=== PATIENT | male | born 1970 | race Caucasian/White ===

== ENCOUNTER → 2018-02-20 | Outpatient (CLI) | payer BC ==
--- NOTE | 2018-02-20 16:41 | US ---
EXAMINATION TYPE: US scrotum with doppler. Grayscale and color Doppler Duplex imaging performed of t he scrotum. DATE OF EXAM: 02/20/2018 COMPARISON: NONE CLINICAL HISTORY: N50.819 Testicular Pain. EXAM MEASUREMENTS: TESTICLES: Right Testicle: 4.7 x 2.8 x 2.8 cm Left Testicle: 4.0 x 2.2 x 2.8 cm EPIDIDYMIS HEAD: Right Epididymis: 1.3 cm Left Epididymis: 1.7 cm Doppler performed to assess for testicular vascularity; good bilateral color flow and waveforms are s een. There is no evidence of testicular torsion. Presence of hydroceles: no Presence of varicoceles: no IMPRESSION: No evidence of testicular torsion or mass. No free fluid.
== END | disposition home or self-care (01) ==
LOC: RADUSWWP 16:05
PROVIDERS: ATTEND Family Medicine
DX: N50.819 Testicular pain, unspecified (principal)
CPT/HCPCS: 76870; 93975

== ENCOUNTER → 2018-10-29 | Outpatient (CLI) | payer BC ==
--- NOTE | 2018-10-29 07:26 | MR ---
EXAMINATION TYPE: MR brain wo con DATE OF EXAM: 10/29/2018 COMPARISON: NONE HISTORY: Vertigo T1-weighted sagittal, T2, FLAIR, and diffusion axial, and T2 coronal coronal views of the brain are s ubmitted. There is no evidence of acute ischemia. The ventricles, basal cisterns, and sulci overlying the conv exities are consistent with the patient's age. There is no mass effect. Craniocervical junction maintained. Sella turcica has a normal appearance. Trace amount of fluid surr ounding the optic nerves. No cerebellopontine angle mass. Changes of chronic sinusitis noted. Changes of mild mastoiditis. IMPRESSION: 1. No acute intracranial process. 2. Findings compatible with chronic sinusitis and mild left mastoiditis. 3. There is a trace amount of fluid surrounding the optic nerves which is nonspecific but can occasio chel be seen with benign increased intracranial hypertension. Correlate clinically.
== END | disposition home or self-care (01) ==
LOC: RADMRIMAIN 06:15
PROVIDERS: ATTEND Family Medicine
DX: R42 Dizziness and giddiness (principal)
CPT/HCPCS: 70551

== ENCOUNTER → 2019-03-23 | Outpatient (CLI) | payer BC ==
--- NOTE | 2019-03-24 08:12 | US ---
EXAMINATION TYPE: US thyroid st tissue head/neck DATE OF EXAM: 03/23/2019 COMPARISON: US 2016, 2014, and 2013. CLINICAL HISTORY: E04.1 Thyroid nodule. Nontoxic single thyroid nodule. GLAND SIZE: Right Lobe: 6.2 x 1.8 x 2.2 cm Overall Parenchyma: homogenous Left Lobe: 5.2 x 1.9 x 1.7 cm Overall Parenchyma: homogeneous Isthmus Thickness: 0.3 cm NODULES RIGHT: # of nodules measured on right: 1 1. 1.1 X 1.0 x 1.2 cm mixed nodule at the upper pole with irregular margins. This nodule is taller than wide and shows intranodular vascularity. Prior size: 1.1 x 0.8 x 0.8 cm LEFT: # of nodules measured on left: 0 ISTHMUS: # of nodules measured in the isthmus: 0 IMPRESSION: Continued slow growth of the complex right thyroid nodule in comparison to the exam of , 2014, and 2013 and an overall enlarged thyroid gland. Given the nodules small size continued surv eillance could be performed.
== END | disposition home or self-care (01) ==
LOC: RADUSWWP 16:00
PROVIDERS: ATTEND Family Medicine
DX: E04.1 Nontoxic single thyroid nodule (principal)
CPT/HCPCS: 76536

== ENCOUNTER → 2019-10-09 | Outpatient (CLI) | payer BC ==
--- NOTE | 2019-10-09 11:53 | ECHOS ---
STRESS ECHOCARDIOGRAM INDICATIONS: Dyspnea MEDICATIONS: Jardience, Livalo, omeprazole, lisinopril. BASELINE HEART RATE: 81 BASELINE BLOOD PRESSURE: 111/70 MAXIMUM HEART RATE: 164 MAXIMUM BLOOD PRESSURE: 207/83 85% MPHR: 145 100% MPHR: 171 METS: 11.7 MAXIMUM STAGE REACHED: 4 TOTAL EXERCISE TIME: 10:00 CLINICAL INFORMATION: History of shortness of breath, referred for exercise stress echo. Baseline heart rate 81 beats per minute. Baseline blood pressure 111/70 mmHg. Baseline 12-lead ECG shows sinus rhythm with 0.[address] elevation inferolaterally. Patient exercised on a Ghassan protocol for 10 minutes achieving a peak heart rate of 164 beats per minute. Hypertensive response to exercise noted. Peak blood pressure was 207/83 mmHg. PVCs were noted during the stress test. There was no ECG evidence for ischemia. No sustained or nonsustained arrhythmias noted. Baseline 2D echo images showed normal LV size and systolic function without any segmental wall motion abnormalities. At peak exercise, there was excellent augmentation of overall LV contractility without development of any wall motion abnormalities. At recovery, regional global LV systolic function remained normal. IMPRESSION: 1. No ECG or echocardiographic evidence for ischemia. 2. Good exercise capacity. 3. Occasional premature ventricular contractions noted during exercise. MMODL / IJN: [id number] /
== END | disposition home or self-care (01) ==
LOC: RADNMMAIN 09:31
PROVIDERS: ATTEND Family Medicine
DX: R06.00 Dyspnea, unspecified (principal)
CPT/HCPCS: 93351

== ENCOUNTER 2020-12-25 03:14 | Emergency (ER) | payer BC ==
[2020-12-25 03:19] VITALS: TEMP 98.4
[2020-12-25] MEDS ORDERED: SODIUM CHLORIDE 0.9% 1,000 ML IV STA ×2 (03:25→04:36)
[2020-12-25] MEDS ORDERED: MORPHINE SULFATE 4 MG/ML SYRINGE IV STA (03:25)
--- NOTE | 2020-12-25 03:25 | ED ---
Back Pain HPI - General Chief Complaint: Back Pain/Injury Stated Complaint: Lower back pain Time Seen by Provider: 12/25/20 03:18 Source: patient, RN notes reviewed, old records reviewed Limitations: no limitations - History of Present Illness Initial Comments: This is a 50-year-old male DF for evaluation patient with sudden onset of left- sided severe back and abdominal pain radiating to groin with difficulty and pain. Patient has no history of kidney stones but does have fentanyl with history of kidney stones. Nursing travel history no fevers. No other complaints. Symptoms are sudden onset tonight with no prior history of same MD Complaint: back pain, other (Left flank pain) -: hour(s) Similar Symptoms Previously: No Place: home Radiation: groin Severity: severe Severity scale (1-10): 10 Quality: sharp Consistency: constant Improves With: none Worsens With: none, other (Awoke with symptoms) Associated Symptoms: denies other symptoms - Related Data Allergies Allergy/AdvReac Type Severity Reaction Status Date / Time No Known Allergies Allergy Verified 12/25/20 03:18 Review of Systems ROS Statement: Those systems with pertinent positive or pertinent negative responses have been documented in the HPI. ROS Other: All systems not noted in ROS Statement are negative. Past Medical History Past Medical History: Diabetes Mellitus History of Any Multi-Drug Resistant Organisms: None Reported Past Surgical History: No Surgical Hx Reported Past Psychological History: No Psychological Hx Reported Smoking Status: Never smoker Past Alcohol Use History: Occasional Past Drug Use History: None Reported General Exam Limitations: no limitations General appearance: alert, in no apparent distress Head exam: Present: atraumatic, normocephalic, normal inspection Eye exam: Present: normal appearance, PERRL, EOMI. Absent: scleral icterus, conjunctival injection, periorbital swelling ENT exam: Present: normal exam, mucous membranes moist Neck exam: Present: normal inspection. Absent: tenderness, meningismus, lymphadenopathy Respiratory exam: Present: normal lung sounds bilaterally. Absent: respiratory distress, wheezes, rales, rhonchi, stridor Cardiovascular Exam: Present: normal rhythm, tachycardia, normal heart sounds. Absent: systolic murmur, diastolic murmur, rubs, gallop, clicks GI/Abdominal exam: Present: soft, normal bowel sounds. Absent: distended, tenderness, guarding, rebound, rigid Extremities exam: Present: normal inspection, full ROM, normal capillary refill. Absent: tenderness, pedal edema, joint swelling, calf tenderness Back exam: Present: normal inspection Neurological exam: Present: alert, oriented X3, CN II-XII intact Psychiatric exam: Present: normal affect, normal mood Skin exam: Present: warm, dry, intact, normal color. Absent: rash Course Vital Signs 12/25/20 12/25/20 03:15 04:35 Temperature 98.4 F Pulse Rate 109 H 97 Respiratory 22 Rate Blood Pressure 124/78 178/98 O2 Sat by Pulse 99 98 Oximetry - Reevaluation(s) Reevaluation #1: 12/25/20 04:37 Medical record is reviewed Reevaluation #2: 12/25/20 04:38 patient patient has pain control but still with severe pain 12/25/20 05:02 Patient continues to feel better here in the ER Reevaluation #3: 12/25/20 05:02 Spoke with patient regarding findings, questions answered Medical Decision Making - Medical Decision Making 50 female DF for evaluation patient Dese for evaluation regards to severe pain does have positive kidney stone. Given symptomatic treatment and can be discharged home - Lab Data Result diagrams: 12/25/20 03:41 12/25/20 03:41 Lab Results 12/25/20 12/25/20 12/25/20 Range/Units 03:41 03:41 03:41 WBC 18.2 H (3.8-10.6) k/uL RBC 5.16 (4.30-5.90) m/uL Hgb 16.4 (13.0-17.5) gm/dL Hct 48.4 (39.0-53.0) % MCV 93.9 (80.0-100.0) fL MCH 31.8 (25.0-35.0) pg MCHC 33.9 (31.0-37.0) g/dL RDW 12.9 (11.5-15.5) % Plt Count 222 (150-450) k/uL MPV 7.7 Neutrophils % 87 % Lymphocytes % 8 % Monocytes % 3 % Eosinophils % 0 % Basophils % 0 % Neutrophils # 15.9 H (1.3-7.7) k/uL Lymphocytes # 1.5 (1.0-4.8) k/uL Monocytes # 0.6 (0-1.0) k/uL Eosinophils # 0.0 (0-0.7) k/uL Basophils # 0.0 (0-0.2) k/uL Sodium 141 (137-145) mmol/L Potassium 3.8 (3.5-5.1) mmol/L Chloride 102 (98-107) mmol/L Carbon Dioxide 20 L (22-30) mmol/L Anion Gap 19 mmol/L BUN 20 (9-20) mg/dL Creatinine 1.35 H (0.66-1.25) mg/dL Est GFR (CKD-EPI)AfAm 70 (>60 ml/min/1.73 sqM) Est GFR (CKD-EPI)NonAf 61 (>60 ml/min/1.73 sqM) Glucose 201 H (74-99) mg/dL Calcium 10.0 (8.4-10.2) mg/dL Total Bilirubin 0.5 (0.2-1.3) mg/dL AST 27 (17-59) U/L ALT 30 (4-49) U/L Alkaline Phosphatase 68 (38-126) U/L Total Protein 8.0 (6.3-8.2) g/dL Albumin 5.2 H (3.5-5.0) g/dL Amylase 112 H (30-110) U/L Lipase 342 H (23-300) U/L Urine Color Light Yellow Urine Appearance Clear (Clear) Urine pH 5.5 (5.0-8.0) Ur Specific Elfrida 1.025 (1.001-1.035) Urine Protein Negative (Negative) Urine Glucose (UA) 4+ H (Negative) Urine Ketones 1+ H (Negative) Urine Blood Negative (Negative) Urine Nitrite Negative (Negative) Urine Bilirubin Negative (Negative) Urine Urobilinogen <2.0 (<2.0) mg/dL Ur Leukocyte Esterase Negative (Negative) - Radiology Data Radiology results: report reviewed (CT abdomen and pelvis positive for kidney stone), image reviewed Disposition Clinical Impression: Left ureteral calculus Disposition: HOME SELF-CARE Condition: Good Instructions (If sedation given, give patient instructions): Kidney Stones (ED) Is patient prescribed a controlled substance at d/c from ED?: No Referrals: Gino Alvarez MD [Primary Care Provider] - 1-2 days
[2020-12-25 03:48] LABS: Appearance,Urine Clear (Clear); Bilirubin,Urine Negative (Negative); Blood,Urine Negative (Negative); Color,Urine Light Yellow; Glucose,Urine (UA) 4+ (Negative); Ketones,Urine 1+ (Negative); Leukocyte Esterase,Urine Negative (Negative); Nitrite,Urine Negative (Negative); PH, Urine 5.5 (5.0-8.0); Protein,Urine Negative (Negative); Specific Gravity,Urine 1.025 (1.001-1.035); Urobilinogen,Urine <2.0 mg/dL (<2.0)
[2020-12-25 03:50] LABS: Basophils % (A) 0 %; Eosinophils % (A) 0 %; HCT 48.4 % (39.0-53.0); HGB 16.4 gm/dL (13.0-17.5); Lymphocytes # (A) 1.5 k/uL (1.0-4.8); Lymphocytes % (A) 8 %; MCH 31.8 pg (25.0-35.0); MCHC 33.9 g/dL (31.0-37.0); MCV 93.9 fL (80.0-100.0); Mean Platelet Volume 7.7; Monocytes # (A) 0.6 k/uL (0-1.0); Monocytes % (A) 3 %; Neutrophils # (A) 15.9 k/uL (1.3-7.7); Neutrophils % (A) 87 %; Platelet Count 222 k/uL (150-450); RBC 5.16 m/uL (4.30-5.90); RDW 12.9 % (11.5-15.5); WBC 18.2 k/uL (3.8-10.6)
[2020-12-25 03:57] LABS: Albumin 5.2 g/dL (3.5-5.0); Potassium 3.8 mmol/L (3.5-5.1); Total Bilirubin 0.5 mg/dL (0.2-1.3)
[2020-12-25] MEDS ORDERED: HYDROmorphone 1 MG/ML 1 ML SYRINGE IVP STA (04:36)
--- NOTE | 2020-12-25 04:37 | CT ---
EXAM: CT Abdomen and Pelvis Without Intravenous Contrast CLINICAL HISTORY: Abdominal pain. TECHNIQUE: Axial computed tomography images of the abdomen and pelvis without intravenous contrast. CTDI is 10.77 mGy and DLP is 626 mGy-cm. This CT exam was performed using one or more of the following dose reduction techniques: automated exposure control, adjustment of the mA and/or kV according to patient size, and/or use of iterative reconstruction technique. COMPARISON: No relevant prior studies available. FINDINGS: Lung bases: Unremarkable. No mass. No consolidation. ABDOMEN: Liver: Unremarkable. Gallbladder and bile ducts: Unremarkable. No calcified stones. No ductal dilation. Pancreas: Unremarkable. No ductal dilation. Spleen: Unremarkable. No splenomegaly. Adrenals: Unremarkable. No mass. Kidneys and ureters: Moderate to severe left hydronephrosis with extensive perinephric stranding. 3 mm obstructing calculus at the left ureterovesical junction. Stomach and bowel: Unremarkable. No obstruction. No mucosal thickening. PELVIS: Appendix: No findings to suggest acute appendicitis. Bladder: Unremarkable. No stones. Reproductive: Unremarkable as visualized. ABDOMEN and PELVIS: Intraperitoneal space: Unremarkable. No free air. No significant fluid collection. Bones/joints: No acute fracture. No dislocation. Soft tissues: Unremarkable. Vasculature: Unremarkable. No abdominal aortic aneurysm. Lymph nodes: Unremarkable. No enlarged lymph nodes. IMPRESSION: Moderate to severe left hydronephrosis with extensive perinephric stranding. 3 mm obstructing calculus at the left ureterovesical junction.
[2020-12-25] MEDS ORDERED: IBUPROFEN 600 MG STARTER PACK 4 TAB BTL PO STA (04:53)
[2020-12-25] MEDS ORDERED: ACET/COD 300 MG/30 MG STARTER PACK 6 TAB BTL PO STA (04:53)
[2020-12-25] MEDS ORDERED: TAMSULOSIN 0.4 MG CAP.ER.24H PO STA (04:53)
[2020-12-25] MEDS ORDERED: KETOROLAC 15 MG/ML 1 ML VIAL IVP STA (04:53)
[2020-12-25 05:41] VITALS: BP 156/98; PULSE 102; RESP 16
== END 2020-12-25 05:40 | disposition home or self-care (01) ==
LOC: EC 03:14
DX: N20.2 Calculus of kidney with calculus of ureter (principal)
CPT/HCPCS: 36415; 80053; 82150; 83690; 85025; 81003; 74176; 99284; 96374; 96375 ×2; 96361 ×2; J2270; J1170; J1885

== ENCOUNTER → 2021-07-28 | Outpatient (CLI) | payer BC ==
--- NOTE | 2021-07-28 15:41 | MR ---
EXAMINATION TYPE: MR lumbar spine wo con DATE OF EXAM: 07/28/2021 COMPARISON: CT abdomen and pelvis December 25, 2020 HISTORY: LBP, radiating down right hip and leg x 1 month, no hx of trauma. TECHNIQUE: Multiplanar, multisequence imaging of the lumbar spine is performed without IV contrast. FINDINGS: Sagittal images of the lumbar spine show vertebral body heights and alignment to appear sat isfactory. Multilevel disc desiccation with disc space heights fairly well maintained. The conus med ullaris is normal in position and signal ending mid L1 level. Small hemangioma involving L3 vertebra sagittal image 8. Axial images show T12-L1, L1-L2, and L2-L3 levels all to appear within normal limits. Axial images at L3-L4 level show mild broad disc bulge with tiny left paracentral disc protrusion com ponent mildly effacing the anterior thecal sac and causing mild left-sided anterior inferior neural f oraminal narrowing. Patent right-sided neural foramina. Axial images at L4-L5 level show [id number] facet arthropathy bilaterally. There is focal right paracentral disc protrusion minimally effacing the anterior thecal sac, there is mild left greater t huizar right bilateral neural foraminal narrowing. Axial images at L5-S1 level show mild facet arthropathy otherwise unremarkable. Increased epidural fa t at this level noted. There is a round 1.2 cm T2 hyperintense structure suggesting simple thin-walled cyst left kidney axia l image 19 less well seen on CT. IMPRESSION: Mild to moderate multilevel degenerative changes mid to lower lumbar spine as detailed ab ove.
== END | disposition home or self-care (01) ==
LOC: RADMRIMAIN 14:23
PROVIDERS: ATTEND Family Medicine
DX: M51.16 Intervertebral disc disorders with radiculopathy, lumbar region (principal); M47.27 Other spondylosis with radiculopathy, lumbosacral region; M99.73 Connective tissue and disc stenosis of intervertebral foramina of lumbar region
CPT/HCPCS: 72148

== ENCOUNTER → 2021-11-10 | Outpatient (CLI) | payer BC ==
--- NOTE | 2021-11-10 10:40 | XR ---
EXAMINATION TYPE: XR chest 2V DATE OF EXAM: 11/10/2021 COMPARISON: Prior chest x-ray June 11, 2013 HISTORY: Presurgical study. TECHNIQUE: Frontal and lateral views of the chest are obtained. FINDINGS: There is no suspicious new focal air space opacity, pleural effusion, or pneumothorax seen . The cardiac silhouette size is stable and within normal limits. The osseous structures are intac t. IMPRESSION: No acute process. No significant change from prior.
[2021-11-10 11:18] LABS: Appearance,Urine Clear (Clear); Bilirubin,Urine Negative (Negative); Blood,Urine Negative (Negative); Color,Urine Light Yellow; Glucose,Urine (UA) 4+ (Negative); HCT 49.8 % (39.0-53.0); HGB 16.8 gm/dL (13.0-17.5); Ketones,Urine Negative (Negative); Leukocyte Esterase,Urine Negative (Negative); MCHC 33.8 g/dL (31.0-37.0); MCV 97.7 fL (80.0-100.0); Mean Platelet Volume 7.6; Nitrite,Urine Negative (Negative); Platelet Count 189 k/uL (150-450); Protein,Urine Negative (Negative); RDW 12.8 % (11.5-15.5); Specific Gravity,Urine 1.033 (1.001-1.035); Urobilinogen,Urine <2.0 mg/dL (<2.0); WBC 7.3 k/uL (3.8-10.6)
[2021-11-10 11:34] LABS: African American GFR (CKD) >90 (>60 ml/min/1.73 sqM); Anion Gap 11 mmol/L; Blood Urea Nitrogen 19 mg/dL (9-20); Calcium 9.9 mg/dL (8.4-10.2); Carbon Dioxide 23 mmol/L (22-30); Chloride 106 mmol/L (98-107); Glucose 202 mg/dL (74-99); Non-African American GFR(CKD) >90 (>60 ml/min/1.73 sqM); Partial Thromboplastin Time 24.9 sec (22.0-30.0); Potassium 4.4 mmol/L (3.5-5.1); Prothrombin Time 10.4 sec (9.0-12.0); Sodium 140 mmol/L (137-145)
== END | disposition home or self-care (01) ==
LOC: LABPAT 10:04
PROVIDERS: ATTEND Orthopaedic Surgery Orthopaedic Surgery of the Spine
DX: M51.26 Other intervertebral disc displacement, lumbar region (principal); E11.9 Type 2 diabetes mellitus without complications; M51.36 Other intervertebral disc degeneration, lumbar region; M62.830 Muscle spasm of back; M51.16 Intervertebral disc disorders with radiculopathy, lumbar region
CPT/HCPCS: 36415; 71046; 80048; 81003; 85027; 85610; 85730; 93005

== ENCOUNTER 2022-10-12 09:15 | Day surgery (SDC) | payer BC ==
[2022-10-10 12:00] VITALS: BMI 27.1
[~2022-10-12 09:15] MED LIST: LACTATED RINGERS 1,000 ML IV SCH
[2022-10-12 09:53] VITALS: RESP 16; TEMP 97.6
[2022-10-12 10:03] LABS: Glucose,Whole Blood 106 mg/dL (70-110)
[2022-10-12] MEDS ORDERED: LIDOCAINE 1% (10MG/ML) FOR IV START INTRADERMA ONE (10:06)
[2022-10-12] MEDS ORDERED: PROPOFOL 10 MG/ML 20 ML VIAL IV ONE (10:49)
--- NOTE | 2022-10-12 11:13 | P.PCN ---
Date of Procedure: 10/12/22 Procedure(s) Performed: BRIEF HISTORY: Patient is a 52-year-old pleasant white male scheduled for an elective colonoscopy as a part of in for colon cancer. PROCEDURE PERFORMED: Colonoscopy. PREOPERATIVE DIAGNOSIS: Screening for colon cancer. IV sedation per Anesthesia. PROCEDURE: After informed consent was obtained, the patient, was brought into the endoscopy unit. IV sedation was administered by Anesthesia under continuous monitoring. Digital rectal examination was normal. Initially the Olympus CF-160 flexible video colonoscope was then inserted in the rectum, gradually advanced into the cecum without any difficulty. Careful examination was performed as the scope was gradually being withdrawn. Ileocecal valve and the appendiceal orifice were visualized and appeared normal. Prep was fair. There was some sticky still noted in the base of the cecum there was thoroughly irrigated.. Mucosa of the cecum, ascending colon, transverse colon, descending colon, sigmoid colon, and rectum appeared normal. Retroflexion was performed in the rectum and no lesions were seen. The patient tolerated the procedure well. IMPRESSION: Normal-appearing colon from rectum to cecum with no evidence of colorectal neoplasia . RECOMMENDATIONS: Findings of this examination were discussed with the patient as well as his family. He was advised to have a repeat screening colonoscopy in 10 years..
[2022-10-12 11:33] VITALS: BP 134/72; PULSE 82
== END 2022-10-12 11:45 | disposition home or self-care (01) ==
LOC: ORWHC2ENDO 09:15
PROVIDERS: ATTEND Internal Medicine Gastroenterology
DX: Z12.11 Encounter for screening for malignant neoplasm of colon (principal); I10 Essential (primary) hypertension; E78.5 Hyperlipidemia, unspecified; E11.9 Type 2 diabetes mellitus without complications; Z79.899 Other long term (current) drug therapy
CPT/HCPCS: 45378; J2704

== ENCOUNTER → 2023-12-12 | Outpatient (CLI) | payer BC ==
--- NOTE | 2023-12-12 12:38 | FL ---
EXAMINATION TYPE: FL barium swallow DATE OF EXAM: 12/12/2023 CLINICAL INDICATION: 53-year-old male R13.10, unspecified dysphasia, reflux, previous diagnosis of hi atal hernia in 2012. COMPARISON: None Total fluoroscopy time: 1 minute 22 seconds Total images: 30 DOSE AREA PRODUCT (DAP) UGY*M,MGY*CM: 258.92 FINDINGS: The swallowing mechanism is normal and hypopharyngeal anatomy is preserved. The cervical and thoracic portions have a normal course and caliber and normal motility. The mucosa is normal and no persistent filling defect is encountered. There is a sliding hiatal herni a. This various in size depending on patient's position and breathing between tiny and moderate in si ze. Severe gastroesophageal reflux is encountered with positional and Valsalva maneuvers. IMPRESSION: A sliding hiatal hernia changing between tiny to moderate in size. Severe gastroesophagea l reflux is encountered.
== END | disposition home or self-care (01) ==
LOC: RADUSWWP 07:57
PROVIDERS: ATTEND Surgery Plastic and Reconstructive Surgery
DX: K21.9 Gastro-esophageal reflux disease without esophagitis (principal); K44.9 Diaphragmatic hernia without obstruction or gangrene; R13.10 Dysphagia, unspecified
CPT/HCPCS: 74220

== ENCOUNTER 2024-01-02 07:30 | Day surgery (SDC) | payer BC ==
[~2024-01-02 07:30] MED LIST changes: -LACTATED RINGERS 1,000 ML IV SCH; +LIDOCAINE 1% (10MG/ML) FOR IV START INTRADERMA PRN
--- NOTE | 2024-01-02 07:34 | P.GSHP ---
History of Present Illness H&P Date: 01/02/24 CHIEF COMPLAINT: GERD HISTORY OF PRESENT ILLNESS: The patient is a 53-year-old male who presents reports gastroesophageal reflux disease. Upper endoscopy was offered for further evaluation and management. PAST MEDICAL HISTORY: Please see list. PAST SURGICAL HISTORY: Please see list. MEDICATIONS: Please see list. ALLERGIES: Please see list. SOCIAL HISTORY: No illicit drug use FAMILY HISTORY: No reports of Crohn disease or ulcerative colitis. REVIEW OF ORGAN SYSTEMS: CONSTITUTIONAL: No reports of fevers or chills. GI: Denies any blood in stools or constipation. PHYSICAL EXAM: VITAL SIGNS: Stable GENERAL: Well-developed and pleasant in no acute distress. HEENT: No scleral icterus. Extraocular movements grossly intact. Moist buccal mucosa. NECK: Supple without lymphadenopathy. CHEST: Unlabored respirations. Equal bilateral excursions. CARDIOVASCULAR: Regular rate and rhythm. Distal 2+ pulses. ABDOMEN: Soft, nondistended. MUSCULOSKELETAL: No clubbing, cyanosis, or edema. ASSESSMENT: 1. Gastroesophageal reflux disease PLAN: 1. Recommend proceeding with an upper endoscopy Past Medical History Past Medical History: Diabetes Mellitus, GERD/Reflux, Hyperlipidemia Additional Past Medical History / Comment(s): Irregular heart rate @ times. Hx. of IBS. Takes Lisinopril to help with the Jardiance. Hx. of Pilonidal cyst. polyp on thyroid History of Any Multi-Drug Resistant Organisms: MRSA Date of last positivie culture/infection: 2011 MDRO Source:: lower back Past Surgical History: Back Surgery, Orthopedic Surgery Additional Past Surgical History / Comment(s): Back surgery in 2021, hx. of drained Pilonidal cyst. Past Anesthesia/Blood Transfusion Reactions: No Reported Reaction Smoking Status: Never smoker - Past Family History Mother Family Medical History: No Reported History Medications and Allergies Home Medications Medication Instructions Recorded Confirmed Type Aspirin [Adult Low Dose Aspirin EC] 81 mg PO DAILY 10/10/22 12/31/23 History Atorvastatin [Lipitor] 20 mg PO DAILY 10/10/22 12/31/23 History Cholecalciferol [Vitamin D3 (10 10 mcg PO DAILY 10/10/22 12/31/23 History Mcg = 400 Iu)] Omeprazole [PriLOSEC] 20 mg PO AC-BRKFST 10/10/22 12/31/23 History lisinopriL 2.5 mg PO DAILY 10/10/22 12/31/23 History Empagliflozin [Jardiance] 25 mg PO DAILY 12/31/23 12/31/23 History Semaglutide [Ozempic] 2 mg SQ TH 12/31/23 12/31/23 History Allergies Allergy/AdvReac Type Severity Reaction Status Date / Time No Known Allergies Allergy Verified 12/31/23 10:04
[2024-01-02 07:49] VITALS: RESP 16; TEMP 97
[2024-01-02] MEDS: LACTATED RINGERS 1,000 ML IV SCH (07:57)
[2024-01-02 08:01] LABS: Glucose,Whole Blood 132 mg/dL (70-110)
[2024-01-02] MEDS ORDERED: PROPOFOL 10 MG/ML 20 ML VIAL IV ONE (08:34)
[2024-01-02] MEDS ORDERED: LIDOCAINE 1% INJ 10MG/ML (20 ML MDV) ONE (08:34)
[2024-01-02] MEDS: IV FLUID CONTINUATION 300 ML IV ONE (08:47)
[2024-01-02 08:59] LABS: Glucose,Whole Blood 104 mg/dL (70-110)
--- NOTE | 2024-01-02 09:12 | P.PCN ---
Date of Procedure: 01/02/24 Description of Procedure: PREOPERATIVE DIAGNOSIS: Gastroesophageal reflux disease. POSTOPERATIVE DIAGNOSIS: Gastroesophageal reflux disease. Gastritis. Diaphragmatic hiatal hernia OPERATION: Esophagogastroduodenoscopy with biopsies along esophagus antrum and duodenum SURGEON: Ama Perry MD ANESTHESIA: MAC. INDICATIONS: The patient is a 53-year-old male who presents with reflux disease. Benefits and risks of the procedure were described. Informed consent was obtained. DESCRIPTION: The patient was brought into the endoscopy suite and laid in the left lateral decubitus position. An Olympus gastroscope was passed along the posterior oropharynx down to the distal esophagus where the squamocolumnar junction was encountered at 35 cm from the incisors. The stomach was entered and no bile reflux was found. Additional findings are listed below. Biopsies with cold forceps were obtained of the antrum. The first through third portion of the duodenum was examined. Retroflexion of the scope confirmed Hill grade 4 lower esophageal valve. The squamocolumnar junction demonstrated LA grade B erosive esophagitis. The stomach was desufflated. The patient tolerated the procedure well. FINDINGS: Squamocolumnar junction 35 cm from the incisors. Diaphragmatic hiatus at 40 cm. Hiatal hernia, 5 cm, sliding type Hill grade 4 lower esophageal valve. LA grade B erosive esophagitis. Biopsies obtained Biopsies obtained of the duodenum. Chronic gastritis with biopsies obtained. RECOMMENDATIONS: Recommend diaphragmatic hiatal hernia repair due to severity of reflux disease Plan - Discharge Summary Discharge Rx Participant: No New Discharge Prescriptions: Continue Atorvastatin [Lipitor] 20 mg PO DAILY Empagliflozin [Jardiance] 25 mg PO DAILY Semaglutide [Ozempic] 2 mg SQ TH Cholecalciferol [Vitamin D3 (10 Mcg = 400 Iu)] 10 mcg PO DAILY Omeprazole [PriLOSEC] 20 mg PO AC-BRKFST lisinopriL 2.5 mg PO DAILY Aspirin [Adult Low Dose Aspirin EC] 81 mg PO DAILY Discharge Medication List Aspirin [Adult Low Dose Aspirin EC] 81 mg PO DAILY 10/10/22 [History] Atorvastatin [Lipitor] 20 mg PO DAILY 10/10/22 [History] Cholecalciferol [Vitamin D3 (10 Mcg = 400 Iu)] 10 mcg PO DAILY 10/10/22 [History] Omeprazole [PriLOSEC] 20 mg PO AC-BRKFST 10/10/22 [History] lisinopriL 2.5 mg PO DAILY 10/10/22 [History] Empagliflozin [Jardiance] 25 mg PO DAILY 12/31/23 [History] Semaglutide [Ozempic] 2 mg SQ TH 12/31/23 [History] Follow up Appointment(s)/Referral(s): Ama Perry MD [STAFF PHYSICIAN] - 02/04/24 4:30 pm Patient Instructions/Handouts: *Surgery [facility] - (Anesthesia) Discharge Instructions Outpatient Surgery, Hiatal Hernia (DC) Discharge Disposition: HOME SELF-CARE
[2024-01-02 09:27] VITALS: BP 138/83; PULSE 84
== END 2024-01-02 09:41 | disposition home or self-care (01) ==
LOC: ORWHC2ENDO 07:30
PROVIDERS: ATTEND Surgery Plastic and Reconstructive Surgery
DX: K29.50 Unspecified chronic gastritis without bleeding (principal); K21.00 Gastro-esophageal reflux disease with esophagitis, without bleeding; K44.9 Diaphragmatic hernia without obstruction or gangrene; E11.9 Type 2 diabetes mellitus without complications; E78.5 Hyperlipidemia, unspecified; Z79.899 Other long term (current) drug therapy; Z79.82 Long term (current) use of aspirin; Z79.84 Long term (current) use of oral hypoglycemic drugs
CPT/HCPCS: 88305; 43239; J2001; J2704

== ENCOUNTER → 2024-04-08 | Outpatient (CLI) | payer BC ==
--- NOTE | 2024-04-08 14:20 | US ---
EXAMINATION TYPE: US abdomen complete DATE OF EXAM: 04/08/2024 COMPARISON: NONE CLINICAL INDICATION: Male, 53 years old with history of R10.11 RIGHT UPPER QUADRANT PAIN; RUQ pain n/ v TECHNIQUE: Multiple sonographic images of the abdomen are obtained. FINDINGS: EXAM MEASUREMENTS: Liver Length: 13.7 cm Gallbladder Wall: 0.2 cm CBD: 0.3 cm Spleen: 12.2 cm Right Kidney: 11.5x6.4x5.6 cm Left Kidney: 12.4x6.6x6.0 cm CRYPTOGRAPHY TEACHER NOTES: exam limited by bowel gas Pancreas: Head and tail obscured by overlying bowel gas Liver: Mild diffuse increased echogenicity. No focal lesion. Gallbladder: wnl as best visualized, not fully distended Evidence for sonographic Ortega's sign: No CBD: wnl Spleen: wnl Right Kidney: wnl Left Kidney: Benign lower pole cortical cyst measuring 1.2x1.4x1.3cm. No hydronephrosis. Upper IVC: wnl Abd Aorta: wnl IMPRESSION: 1. Limitations due to bowel gas. There is mild to moderate hepatic steatosis. Correlate with LFTs, li pid profile, and patient risk factors. 2. No gallstones or biliary ductal dilatation.
[2024-04-08 19:12] LABS: Basophils # (A) 0.04 X 10*3/uL (0.00-0.10); Basophils % (A) 0.7 %; Eosinophils # (A) 0.08 X 10*3/uL (0.04-0.35); Eosinophils % (A) 1.4 %; HCT 54.3 % (39.6-50.0); HGB 17.8 g/dL (13.0-17.0); Lymphocytes # (A) 1.42 X 10*3/uL (0.90-5.00); Lymphocytes % (A) 24.1 %; MCH 31.8 pg (27.0-32.0); MCHC 32.8 g/dL (32.0-37.0); Mean Platelet Volume 10.7 FL (9.5-12.2); Monocytes # (A) 0.44 X 10*3/uL (0.20-1.00); Monocytes % (A) 7.5 %; NRBC Per 100 WBC 0 X 10*3/uL (0.00-0.01); Neutrophils # (A) 3.89 X 10*3/uL (1.80-7.70); Neutrophils % (A) 66.1 %; Platelet Count 260 X 10*3/uL (140-440); RDW 12.2 % (11.5-14.5); WBC 5.88 X 10*3/uL (4.50-10.00)
[2024-04-08 19:24] LABS: ALT 61 U/L (10-49); AST 35 U/L (14-35); Albumin 5.1 g/dL (3.8-4.9); Albumin/Globulin Ratio 1.89 Ratio (1.60-3.17); Alkaline Phosphatase 86 U/L (41-126); Amylase 70 U/L (23-121); Blood Urea Nitrogen 18.1 mg/dL (9.0-27.0); Calcium 9.8 mg/dL (8.7-10.3); Carbon Dioxide 19.1 mmol/L (21.6-31.8); Chloride 104 mmol/L (96-109); Globulin 2.7 g/dL (1.6-3.3); Glucose 111 mg/dL (70-110); Lipase 88 U/L (14-60); Potassium 4.5 mmol/L (3.5-5.5); Sodium 138 mmol/L (135-145); Total Bilirubin 0.5 mg/dL (0.3-1.2); Total Protein 7.8 g/dL (6.2-8.2)
== END | disposition home or self-care (01) ==
LOC: RADUSWWP 12:42
PROVIDERS: ATTEND Family Medicine
DX: R14.3 Flatulence (principal); K76.0 Fatty (change of) liver, not elsewhere classified
CPT/HCPCS: 36415; 76700; 80053; 82150; 83690; 85025